=== PATIENT | female | born 1985 | race Caucasian/White ===

== ENCOUNTER 2017-04-08 13:21 | Observation (INO) | payer BC ==
[~2017-04-08] VITALS: Ht 162.6 cm; Wt 63.6 kg
[~2017-04-08 13:21] MED LIST: CITALOPRAM40 MG PO; RT ALBUTEROL I6.8 GM IH
[2017-04-08 14:17] LABS: EOS # 0.1 (0.04-0.40); EOS % 1.7 % (1.0-5.0); HEMATOCRIT 46.2 % (37.0-47.0); HEMOGLOBIN 15.1 g/dL (12.5-16.0); LYMPH# 1.6 (1.50-4.00); MEAN CELL VOLUME 89 fl (78-100); MEAN CORPUSCULAR HEMOGLOBIN 29 pg (27-31); MEAN CORPUSCULAR HGB CONC 33 g/dL (33-37); MEAN PLATELET VOLUME 11.1 fl (7.4-10.4); MONO # 0.2 (0.20-0.80); NEU # 1.7 (1.40-6.50); PLATELET COUNT 227 K/mm3 (130-400); RED BLOOD COUNT 5.18 M/mm3 (4.10-5.30); RED CELL DISTRIBUTION WIDTH 14.3 % (11.5-14.5); WHITE BLOOD COUNT 3.6 K/mm3 (4.8-10.8)
[2017-04-08 14:23] LABS: ACETAMINOPHEN < 4 ug/mL (10-30); ALBUMIN 4.3 g/dL (3.5-5.0); ALCOHOL IN-HOUSE 272 mg/dL; ALT/SGPT 31 U/L (9-52); AST-SGOT 24 U/L (14-36); BUN/CREATININE RATIO 5.2 (6.0-26.0); CALCIUM 9.1 mg/dL (8.4-10.2); CARBON DIOXIDE 29 mmol/L (22-30); GLUCOSE 86 mg/dL (65-105); POTASSIUM 4.3 mmol/L (3.6-5.0); SODIUM 149 mmol/L (137-145); TOTAL BILIRUBIN 0.5 mg/dL (0.2-1.3); TOTAL PROTEIN 7.6 g/dL (6.3-8.2)
[2017-04-08 15:51] VITALS: BP 111/74
[2017-04-08] MEDS ORDERED: DESYREL 50MG50 MG PO (16:16)
--- NOTE | 2017-04-08 16:29 | NUR ---
PT SETTLING INTO NEW ROOM, POLICE SITTING IN CHAIR AT BEDSIDE, PT IS CALM AND COOPERATIVE, ABLE TO HOLD APPROPRIATE CONVERSATION, VERY APPRECIATIVE OF CARE AND ANSWERING ALL QUESTIONS APPROPRIATELY, COMPLEX ASSESSMENT COMPLETED, ORIENTED TO ROOM AND CALL LIGHT, INSTRUCTED TO URINATE INTO CUP PROVIDED IN RESTROOM WITH NEXT VOID FOR HER CURRENT LAB ORDERS, PT HAS A STRONG STEADY GAIT, DENIES WEAKNESS, STATES SHE HAS HAD "NO APPETITE" JUST DUE TO STRESS, OCCASIONALLY TEARFUL BUT CALM, FATHER CALLS AND PT ACCEPTS PHONE CALL, STATES SHE HAS "A FEW FRIENDS" SHE WILL DISCUSS HER EMOTIONAL STATE WITH BUT DOES NOT TYPICALLY DISCUSS HER HEALTH WITH HER FAMILY ALTHOUGH SHE IS CURRENTLY LIVING WITH THEM, SHE STATES AFTER DC SHE WILL NOT BE LIVING WITH THEM BUT IS UNSURE OF WHERE SHE WILL BE LIVING, ALSO REPORTS 3 DAYS SHE RELAPSED USING ALCOHOL AND HAS BEEN DRINKING 5 "SHOOTERS" PER DAY SINCE, PT AT THIS TIME APPEARS FULLY SOBER AND NO SMELL OF ALCOHOL IS PRESENT, WILL CONTINUE WITH ASSESSMENT AT THIS TIME
[2017-04-08 17:40] LABS: URINE APPEARANCE CLEAR; URINE COLOR YELLOW
[2017-04-08 17:41] LABS: URINE BILIRUBIN NEGATIVE (NEGATIVE); URINE BLOOD TRACE (NEGATIVE); URINE GLUCOSE NEGATIVE (NEGATIVE); URINE KETONE NEGATIVE (NEGATIVE); URINE LEUKOCYTE ESTERASE TRACE (NEGATIVE); URINE NITRATE NEGATIVE (NEGATIVE); URINE PROTEIN(semi-quant) NEGATIVE (NEGATIVE); URINE UROBILINOGEN NORMAL (NORMAL)
[2017-04-08 17:52] VITALS: BP 97/78
--- NOTE | 2017-04-08 18:00 | NUR ---
CIWA ASSESSMENT COMPLETED AT THIS TIME, SCORE:5, PT DENIES ANY INCREASED ANXIETY, PT ATE ALL OF SUPPER AND IS CALM AND TALKATIVE WITH STAFF, SMILING AFFECT AT THIS TIME, STILL APPRECIATIVE OF CARES, FULLY ALERT AND ORIENTED, NEURO CHECK STABLE, NO PRN ATIVAN ADMINISTERED AT THIS TIME, WILL CONTINUE TO MONITOR
[2017-04-08 19:00] VITALS: BP 103/60
--- NOTE | 2017-04-08 19:34 | NUR ---
REPORT RECEIVED FROM DINA Lugo RN.
--- NOTE | 2017-04-08 19:52 | NUR ---
PATIENT AMBULATES OUTSIDE WITH OFFICER.
--- NOTE | 2017-04-08 20:01 | NUR ---
LAB IN WITH PATIENT TO REDRAW ETOH LEVEL.
[2017-04-08 20:36] LABS: BUN/CREATININE RATIO 6.7 (6.0-26.0); CALCIUM 9.1 mg/dL (8.4-10.2); POTASSIUM 4.4 mmol/L (3.6-5.0)
--- NOTE | 2017-04-08 20:57 | NUR ---
DONN PEREIRA CONTACTED REGARDING PATIENT'S ETOH LEVEL OF 151. DONN STATES SHE WILL HAVE HER REDRAWN IN THE MORNING, AND TO NOTIFY PATIENT THAT SHE WILL BE UNDER OBSERVATION ALL NIGHT. PATIENT AND LAW ENFORCEMENT AT BEDSIDE NOTIFIED OF OVERNIGHT STAY. BOTH INDICATE UNDERSTANDING. 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 FOOD PROVIDED. PATIENT DOES NOT APPEAR TO BE IN ANY OBVIOUS DISTRESS AT THIS TIME. PATIENT IS ALERT AND ORIENTED, PLEASANT AND COOPERATIVE.
[2017-04-08 23:34] VITALS: BP 100/65
--- NOTE | 2017-04-09 | NUR ---
CIWA SCALE PERFORMED AT THIS TIME. PATIENT REPORTS A MINOR HEADACHE, BUT IT IS NOT NEW. PATIENT HAS NO OTHER SYMPTOMS. PATIENT IS MILDLY ANXIOUS FROM THE ADMIT TO THE HOSPITAL FOR OBSERVATION, BUT KANIKA APPROPRIATELY. PATIENT CONTINUES TO REST QUIETLY.
--- NOTE | 2017-04-09 00:59 | NUR ---
PATIENT CONTINUES TO REST QUIETLY AND WITHOUT INCIDENT IN BED. PATIENT DOES NOT APPEAR TO BE IN ANY OBVIOUS DISTRESS AT THIS TIME. PATIENT CHANGES HER POSITION IN BED THROUGHOUT THE NIGHT INDEPENDENTLY. LAW ENCORCEMENT REMAINS AT BEDSIDE. PATIENT DENIES ANY PAIN OR NEEDS. PATIETN SNACKS OCCASSIONALLY. CALL LIGHT WITH REACH. CLOSE MONITORING AND HOURLY ROUNDING CONTINUE.
--- NOTE | 2017-04-09 04:29 | NUR ---
PATIENT CONTINUES TO REST QUIETLY. PATIENT DOES NOT APPEAR TO BE IN ANY OBVIOUS DISTRESS AT THIS TIME. PATIENT HAS NO REQUESTS OR COMPLAINTS. MICHELLE REMAINS AT BEDSIDE. CLOSE MONITORING AND HOURLY ROUNDING CONTINUE.
[2017-04-09 06:24] VITALS: BP 113/65
--- NOTE | 2017-04-09 06:45 | NUR ---
KEVYN NOTIFIED FOR NEED FOR PSYCH SCREEN AFTER ETOH LEVEL IS WITHIN ACCEPTABLE RANGE.
--- NOTE | 2017-04-09 07:00 | NUR ---
REPORT GIVEN TO JOSH Pope RN.
--- NOTE | 2017-04-09 07:15 | NUR ---
Report received from Kelley. Pt sleeping in bed. reserve officer remains at bedside
--- NOTE | 2017-04-09 07:45 | NUR ---
Pt zooming with screener
[2017-04-09] MEDS ORDERED: DESYREL 50MG50 MG PO (08:59)
--- NOTE | 2017-04-09 09:35 | NUR ---
Pt given discharge instructions and verbalized understanding. Pt leaves at this time with all belongings. Accompanied by MICHELLE to assist her home
[2017-04-10] MEDS ORDERED: CORTISPORIN OTI10 ML OT (08:29)
== END 2017-04-09 09:35 | disposition home or self-care (01) ==
LOC: ED 13:21 → MED/SURG 15:23
PROVIDERS: ADMIT Physician Assistant
DX: R45.851 Suicidal ideations (principal); F10.220 Alcohol dependence with intoxication, uncomplicated; Y90.8 Blood alcohol level of 240 mg/100 ml or more; Z91.5 Personal history of self-harm; F17.210 Nicotine dependence, cigarettes, uncomplicated; J45.909 Unspecified asthma, uncomplicated; F32.9 Major depressive disorder, single episode, unspecified; F50.2 Bulimia nervosa
CPT/HCPCS: G0378

== ENCOUNTER 2017-04-09 13:40 | Observation (INO) | payer BC ==
[~2017-04-09] VITALS: Ht 162.6 cm; Wt 61.4 kg
[~2017-04-09 13:40] MED LIST changes: +DESYREL 50MG50 MG PO
[2017-04-09 15:07] LABS: ACETAMINOPHEN < 4 ug/mL (10-30); ALCOHOL IN-HOUSE 278 mg/dL
[2017-04-09 15:15] LABS: GLUCOSE 82 mg/dL (65-105)
[2017-04-09 15:16] LABS: ALBUMIN 3.6 g/dL (3.5-5.0); BUN/CREATININE RATIO 10.6 (6.0-26.0); CALCIUM 8.7 mg/dL (8.4-10.2); CARBON DIOXIDE 21 mmol/L (22-30); POTASSIUM 3.7 mmol/L (3.6-5.0); SODIUM 142 mmol/L (137-145); TOTAL BILIRUBIN 0.7 mg/dL (0.2-1.3); TOTAL PROTEIN 6.5 g/dL (6.3-8.2)
[2017-04-09 15:17] LABS: ALT/SGPT 33 U/L (9-52); AST-SGOT 49 U/L (14-36)
--- NOTE | 2017-04-09 15:40 | NUR ---
Pt ambulates to room 204. Accompanied by this nurse and MICHELLE who remains at bedside. Pt belongings locked in med room. Pt becomes upset and asking for cigarette and phone to call fired. Pt re educated of policy to not have her personal belonings at this time. Denies any pain. Scattered bruising to BLE. Pt requests something for ears as she thinks she has water in ears. Provider notified. MICHELLE remains in room with pt
[2017-04-09 15:44] VITALS: BP 120/79
[2017-04-09 16:00] VITALS: BP 120/79
--- NOTE | 2017-04-09 17:00 | NUR ---
Pt takes off nicorette patch. States that it makes her nausated and that she wants to go out and smoke. Stating "I smoke the cigarettes without the chemicals" Pt educated on no smoking policy. Pt agrees and officer remains in room with pt
[2017-04-09 18:27] VITALS: BP 116/57
--- NOTE | 2017-04-09 18:30 | NUR ---
Pt becoming very anxious and requesting an inhaler. Pt was given her personal inhaler and reports she needs it and can not find it.
[2017-04-09 18:31] VITALS: BP 116/57
[2017-04-09 18:56] VITALS: BP 102/53
--- NOTE | 2017-04-09 19:00 | NUR ---
Pt flushed and continues to ask for inhaler. Room again searched by multiple staff members and no inhaler found. Pt does not to appear to be SOB or in any distress.
--- NOTE | 2017-04-09 19:15 | NUR ---
Pt request to use restroom officer notifies this nurse and this nurse accompanies pt to bathroom where she is found to have inhaler and her personal chapstick in her underwear. Both taken from pt at this time and locked up with her personal belongings. Officer remains at bedside.
--- NOTE | 2017-04-09 20:00 | NUR ---
Report received from Celena MONTANO. Patient resting supine in bed with commander police reserves at bedside. A/O x4. States has H/A. Rates 3/10. Also states has "water in ears". Has ear gtts ordered. Ibuprofen given for H/A. CIWA-Ar assessment score 8. Had Ativan at 1907 by previous nurse. Assessment completed. Has bruising to RLE, no pain. No further trauma noted. Asks this nurse, "do you know whats going on". This nurse clarify's. Do you mean what the plan is? Patient states "yes". Explained that the plan with Nagi failed and that she had a serious attempt and that we need to do the same as last night, wait until her alcohol level is below 100 and do another [place] screen and then it is up to the screener what the plan is. Patient has also asked this nurse as well as numerous previous shift staff and current staff for her phone, purse and other items and has been told no that she is not allow these item's due to her suicide attempt. She continues to ask for them at various times but does not become beligerent.
--- NOTE | 2017-04-09 20:45 | NUR ---
Rings call MARITZA holley to room. Patient states. "I know they said I can't have my inhaler or a cigarette but its making me want to leave". This nurse talks to sales promotion officer and tell them to remind patient that she is in police custody and that she is not allowed to leave facility.
--- NOTE | 2017-04-09 21:48 | NUR ---
Sleeping soundly at this time. Respirations even and non-labored. No signs of pain or distress.
[2017-04-09 23:50] VITALS: BP 98/54
--- NOTE | 2017-04-10 01:26 | NUR ---
Continues sleeping with no signs of pain or distress. MICHELLE remains in room.
--- NOTE | 2017-04-10 02:08 | NUR ---
Sleeping, no signs of pain or distress. Respirations even and non-labored. MICHELLE remains at bedside.
[2017-04-10 02:59] VITALS: BP 102/67
--- NOTE | 2017-04-10 04:13 | NUR ---
Resting on L side. Has been awake briefly through the night. No signs of withdrawl. No further verbalization of wanting to leave. Has not asked for cigarettes or inhaler to hospital staff. Did verbalize to DRAMATIC AGENT her worry of her job. MICHELLE remains in room.
--- NOTE | 2017-04-10 05:50 | NUR ---
Up to BR with assist of CARGO OPERATIONS AGENT. Has verbalized that she is "sore" but no pain. No anxiety or signs of alcohol noted or reported from staff or MICHELLE. Bruise noted to R posterior upper arm.
[2017-04-10 06:14] LABS: EOS # 0.1 (0.04-0.40); EOS % 1.4 % (1.0-5.0); HEMATOCRIT 41.2 % (37.0-47.0); HEMOGLOBIN 13.5 g/dL (12.5-16.0); LYMPH# 1.6 (1.50-4.00); MEAN CELL VOLUME 89 fl (78-100); MEAN CORPUSCULAR HEMOGLOBIN 29 pg (27-31); MEAN CORPUSCULAR HGB CONC 33 g/dL (33-37); MEAN PLATELET VOLUME 10.7 fl (7.4-10.4); MONO # 0.5 (0.20-0.80); NEU # 2.3 (1.40-6.50); PLATELET COUNT 181 K/mm3 (130-400); RED BLOOD COUNT 4.63 M/mm3 (4.10-5.30); RED CELL DISTRIBUTION WIDTH 14.1 % (11.5-14.5); WHITE BLOOD COUNT 4.4 K/mm3 (4.8-10.8)
[2017-04-10 06:21] VITALS: BP 101/62
[2017-04-10 06:31] LABS: BUN/CREATININE RATIO 9.4 (6.0-26.0); CALCIUM 9.1 mg/dL (8.4-10.2); CARBON DIOXIDE 28 mmol/L (22-30); GLUCOSE 85 mg/dL (65-105); POTASSIUM 3.8 mmol/L (3.6-5.0); SODIUM 139 mmol/L (137-145)
[2017-04-10 06:34] LABS: ALCOHOL IN-HOUSE < 10 mg/dL
--- NOTE | 2017-04-10 06:38 | NUR ---
Report to Celena MONTANO.
--- NOTE | 2017-04-10 07:19 | NUR ---
Pt has zoomed with Joceline from [facility] and this nurse also discusses plan of care with him and the pt. Joceline will be making referrals for inpatient treatement and will notify this nurse on place of acceptance. Pt agrees to plan. Pt asks questions in regard to using phone to call her parents and work. Pt agrees to wait at this time. Pt rests in bed. Denies any pain. Pt also asks for inhaler. Pt notified this will have to be discussed with the provider. MICHELLE remains at bedside
--- NOTE | 2017-04-10 07:40 | NUR ---
This nurse speaks with intake nurse Sammy at [facility]. Sammy also speaks with pt and pt has been accepted by Dr. Glez. Pt agrees to plan of care. MICHELLE remains at discharge and will be making transportation arrangements.
[2017-04-10] MEDS ORDERED: CORTISPORIN OTI10 ML OT (08:29)
--- NOTE | 2017-04-10 09:06 | NUR ---
Pt leaves with MICHELLE at this time. MICHELLE has all of pt belongings. Father present and takes pt purse. Pt ambulates out with MICHELLE at this time
== END 2017-04-10 09:35 ==
LOC: ED 13:40 → MED/SURG 15:35
PROVIDERS: ADMIT Physician Assistant
DX: T14.91XA Suicide attempt, initial encounter (principal); X71.3XXA Intentional self-harm by drowning and submersion in natural water, initial encounter; Y92.828 Other wilderness area as the place of occurrence of the external cause; S01.112A Laceration without foreign body of left eyelid and periocular area, initial encounter; F10.220 Alcohol dependence with intoxication, uncomplicated; Y90.8 Blood alcohol level of 240 mg/100 ml or more; H61.893 Other specified disorders of external ear, bilateral; M79.605 Pain in left leg; M79.604 Pain in right leg; J45.909 Unspecified asthma, uncomplicated; Z91.5 Personal history of self-harm; F32.9 Major depressive disorder, single episode, unspecified; F50.2 Bulimia nervosa; S61.512D Laceration without foreign body of left wrist, subsequent encounter; S61.511D Laceration without foreign body of right wrist, subsequent encounter; X83.8XXD Intentional self-harm by other specified means, subsequent encounter; F17.210 Nicotine dependence, cigarettes, uncomplicated
CPT/HCPCS: G0378; J2405